=== PATIENT | male | born 1965 | race Caucasian/White ===

== ENCOUNTER 2020-07-10 17:19 | Emergency (ER) | payer OTHER, SELFPAY ==
[2020-07-10] VITALS (20 sets, daily range): BP systolic 127–155; BP diastolic 67–112; PULSE 59–73; RESP 14–22; TEMP 36; O2SAT 98–100
--- NOTE | ~2020-07-10 | XR_ITS ---
EXAMINATION: XR chest 1V portable INDICATION: Cough and shortness of breath TECHNIQUE: Portable AP chest at 07/10/2020 COMPARISON: 08/26/2016 FINDINGS: Patchy opacities are present in the left midlung zone. No pleural effusion or pneumothorax is identified. The cardiomediastinal silhouette is stable. IMPRESSION: 1. Patchy opacities of the left midlung zone, likely pneumonia. Reviewed, dictated and finalized at location A. [employer]
--- NOTE | 2020-07-10 17:40 | ECG_ITS ---
Measurements Intervals [place] Rate: 67 P: 48 OR: 185 QRS: -4 QRSD: 106 T: 1 QT: 351 QTc: 372 Interpretive Statements SINUS RHYTHM VOLTAGE CRITERIA FOR LVH MINIMAL Q WAVES- HIGH LATERAL LEADS BORDERLINE T WAVE ABNORMALITY- ANT/INF LEADS BASELINE WANDER- V1 BORDERLINE ECG Electronically Signed On 07-10-2020 19:35:39 ASSISTANT FRONT OFFICE MANAGER by Isidoro Crump D.O.
[2020-07-10 17:59] LABS: Basophils Percent Auto 0.5 % (0.2-1.2); Eosinophils Absolute Auto 0.2 K/mm3 (0-0.3); Eosinophils Percent Auto 1.9 % (0-4.4); Hematocrit 44.2 % (42.0-52.0); Hemoglobin 14.4 g/dL (14.0-18.0); Immature Granulocyte Absolute 0.04 K/mm3 (0.00-0.031); Immature Granulocyte Percent A 0.5 % (0-0.5); Lymphocytes Absolute Auto 2.83 K/mm3 (0.9-3.2); Lymphocytes Percent Auto 34.9 % (18.3-44.2); Mean Corpuscular HGB Conc 32.6 g/dl (32-36); Mean Corpuscular Volume 82.9 fl (80-100); Mean Platelet Volume 9.6 fl (7.4-10.4); Monocytes Absolute Auto 0.5 K/mm3 (0.1-0.6); Monocytes Percent Auto 6.5 % (2.6-8.5); Neutrophils Absolute Auto 4.5 K/mm3 (1.3-6.7); Neutrophils Percent Auto 55.7 % (45.5-73.1); Platelet Count Result 228 k/mm3 (150-375); Red Blood Count 5.33 M/mm3 (4.6-6.20); White Blood Count 8.1 K/mm3 (4.5-10.0)
[2020-07-10 18:10] LABS: Anion Gap 8 mmol/L (8-16); Blood Urea Nitrogen 18 mg/dL (9-20); Calcium 9.3 mg/dL (8.4-10.2); Carbon Dioxide 30 mmol/L (22-30); Chloride 101 mmol/L (98-107); Estimated CRCL calculation 106 ml/min; Estimated Glomerular Filt Rate > 60; Glucose 105 mg/dL (75-110); Potassium 4.4 mmol/L (3.4-5.0); Sodium 139 mmol/L (137-145)
[2020-07-10] MEDS: ASPIRIN 81 MG CHEWABLE TABLET 324 MG PO (18:12)
[2020-07-10 18:16] LABS: INR 0.9; Prothrombin Time 12.8 Seconds (11.1-14.7)
[2020-07-10 18:17] LABS: Partial Thromboplastin Time 27.4 SECONDS (22.3-36.8)
[2020-07-10 18:22] LABS: Troponin I < 0.012 ng/mL (0.000-0.034)
[2020-07-10 18:30] LABS: D Dimer 0.27 ug/mL (<0.48)
--- NOTE | 2020-07-10 18:36 | ED.GENADULT ---
HPI - General Adult General Chief complaint: Upper Respiratory Infection Stated complaint: SOB, CHEST TIGHTNESS, COVID NEGATIVE Time Seen by Provider: 07/10/20 17:56 Related Data Allergies Allergy/AdvReac Type Severity Reaction Status Date / Time No Known Allergies Allergy Unverified 07/27/19 11:06 [facility] Past Medical History Medical History (Updated 07/10/20 @ 20:44 by Pawan Aleman, DO) Type 2 diabetes mellitus with hyperglycemia Family History Family History (Updated 08/05/18 @ 11:24 by DOCTOR UNKNOWN) Mother Family history of diabetes mellitus in first degree relative Family history of coronary artery disease Family history of pancreatic cancer Father Family history of lung cancer Other Family history of malignant neoplasm Social History Social History Smoking status: Never smoker Second hand tobacco smoke exposure: No Alcohol intake: current Drinks per week: 1 Substance use: never Substance use type: does not use Gender identity (if verbalized by the patient): Male Course Course Emergency Course: Patient has been asymptomatic throughout stay in ED Discussed with Dr. Coburn presentation work-up. With malignancy on chest x-ray will start on azithromycin will obtain Covid swab in ED with discharge and follow-up as an outpatient Discussed with patient results of workup and diagnosis. Discussed need for follow-up with primary care, proper use of medication, and reasons to return to the emergency department. Patient understands and agrees to current treatment plan patient states that albuterol inhaler was called in for him today Vital Signs Vital signs: Vital Signs Temperature 96.8 F L 07/10/20 17:33 Pulse Rate 65 07/10/20 17:33 Respiratory Rate 18 07/10/20 17:33 Blood Pressure 150/79 H 07/10/20 17:33 Pulse Oximetry 99 07/10/20 17:33 Temperature 96.8 F L 07/10/20 17:33 Pulse Rate 62 07/10/20 19:26 Respiratory Rate 21 H 07/10/20 19:26 Blood Pressure 140/76 07/10/20 19:26 Pulse Oximetry 100 07/10/20 19:26 Medical Decision Making Differential Diagnosis Differential Diagnosis: Patient's EKGs and labs are without significant high risk changes. Cardiac risk factors reviewed. Patient is felt likely low risk for ACS and reasonable for further risk stratification testing as an outpatient. Pain was not sudden or maximal in onset without tearing or ripping quality. No other signs of symptoms suggest aortic dissection. A low-risk Wells criteria is noted, PE is felt to be unlikely. No pneumonia seen on evaluation today. Patient is felt to be a reasonable candidate for continued evaluation as an outpatient. At this time with pneumonia seen on chest x-ray will obtain Covid swab as currently and Covid pandemic with high rate of local transmission Vital Signs Vital Signs: Vital Signs Temperature 96.8 F L 07/10/20 17:33 Pulse Rate 65 07/10/20 17:33 Respiratory Rate 18 07/10/20 17:33 Blood Pressure 150/79 H 07/10/20 17:33 Pulse Oximetry 99 07/10/20 17:33 Temperature 96.8 F L 07/10/20 17:33 Pulse Rate 62 07/10/20 19:26 Respiratory Rate 21 H 07/10/20 19:26 Blood Pressure 140/76 07/10/20 19:26 Pulse Oximetry 100 07/10/20 19:26 Lab Data Result diagrams: 07/10/20 17:46 07/10/20 17:46 Labs: Lab Results 07/10/20 07/10/20 07/10/20 Range/Units 17:46 17:46 17:46 WBC 8.1 (4.5-10.0) K/mm3 RBC 5.33 (4.6-6.20) M/mm3 Hgb 14.4 (14.0-18.0) g/dL Hct 44.2 (42.0-52.0) % MCV 82.9 (80-100) fl MCH 27.0 (26-34) pg MCHC 32.6 (32-36) g/dl RDW 13.0 (11.5-14.5) % Plt Count 228 (150-375) k/mm3 MPV 9.6 (7.4-10.4) fl Immature Gran % (Auto) 0.5 (0-0.5) % Neut % (Auto) 55.7 (45.5-73.1) % Lymph % (Auto) 34.9 (18.3-44.2) % Garfield % (Auto) 6.5 (2.6-8.5) % Eos % (Auto) 1.9 (0-4.4) % Baso % (Auto)
--- NOTE | 2020-07-10 19:08 | PC.NURSE ---
report to WYATT Matta, to continue care.
--- NOTE | 2020-07-10 19:11 | PC.NURSE ---
Assumed care of pt. report from WYATT Miller
[2020-07-10] MEDS: AZITHROMYCIN 250 MG TABLET 500 MG PO (21:00)
[2020-07-10 21:35] LABS: Troponin I < 0.012 ng/mL (0.000-0.034)
[2020-07-11 18:52] LABS: SARS-CoV-2 RNA PCR Negative
== END 2020-07-10 21:57 | disposition home or self-care (01) ==
PROVIDERS: Emergency Medicine; Emergency Provider Emergency Medicine; PCP Family Medicine
DX: J18.9 Pneumonia, unspecified organism (principal); Z20.828 Contact with and (suspected) exposure to other viral communicable diseases; E11.9 Type 2 diabetes mellitus without complications
CPT/HCPCS: 36415; 71045; 80048; 84484; 85025; 85380; 85610; 85730; 87635; 93005; 99284; A9270; C9803; U0003

== ENCOUNTER 2021-05-25 00:55 | Day surgery (SDC) | payer OTHER, SELFPAY ==
[2021-05-10 10:54] VITALS: BMI 43.9
--- NOTE | 2021-05-24 13:41 | PM.HPGS ---
History of Present Illness History of Present Illness Consent: Risks, benefits, and alternatives have been discussed and questions answered. Patient agrees to proceed with procedure. Chief complaint: hx of colon polyps, neoplasm screening Narrative: Pawan Barrow is a 55 year old male referred for colon cancer screening. He had polyps removed about 4 years ago Review of Systems Review of Systems: All systems reviewed & are unremarkable except as noted in HPI and below PMFSH Past Medical History Medical History Type 2 diabetes mellitus with hyperglycemia Family History Family History Mother Family history of diabetes mellitus in first degree relative Family history of coronary artery disease Family history of pancreatic cancer Father Family history of lung cancer Other Family history of malignant neoplasm Social History Social History Smoking status: Never smoker Second hand tobacco smoke exposure: No Alcohol intake: current Drinks per week: 1 Substance use: never Substance use type: does not use Living arrangements: with family Gender identity (if verbalized by the patient): Male Spiritual care concerns: No Meds Home Medications and Allergies Home Medications Medication Instructions Recorded Confirmed Type rosuvastatin 5 mg tablet 5 mg PO QPM #30 tablet 12/21/20 05/25/21 Rx empagliflozin 10 mg tablet 10 mg PO QAM #90 tablet 02/08/21 05/25/21 Rx levothyroxine 175 mcg tablet 175 mcg PO DAILY #90 tablet 04/25/21 05/25/21 Rx metformin 500 mg tablet,extended 2,000 mg PO DAILY #360 tablet 04/25/21 05/25/21 Rx release 24 hr Allergies Allergy/AdvReac Type Severity Reaction Status Date / Time No Known Allergies Allergy Verified 05/25/21 08:12 Exam Resp: Auscultation: clear to auscultation bilaterally Cardio: Rate: regular rate Rhythm: regular rhythm GI: GI Palp: Yes Soft to palpation and No Tenderness to palpation present (GI) Assessment and Plan Assessment and plan (1) Colon cancer screening: Code(s): Z12.11 - Encounter for screening for malignant neoplasm of colon Status: Acute Assessment and Plan: Colonoscopy with possible biopsy or polypectomy or cautery or injection of substances.
[2021-05-25 08:13] VITALS: BP 139/72; PULSE 68; RESP 20; TEMP 36.6; O2SAT 98; BMI 44.9
[2021-05-25] MEDS: LACTATED RINGERS 1,000 ML 150 ML IV CONT (08:16)
[2021-05-25 08:20] LABS: Glucose Point of Care 112 mg/dl (65-105)
--- NOTE | 2021-05-25 08:49 | P.PNAN_ITS ---
Anes - Initial Pre Proc Eval Procedure: Operation Date: 05/25/21 09:00 Proposed Procedures p Screening Colonoscopy - Modesto Santiago MD Date/Time: 05/25/21 08:49 Surgeon: Modesto Santiago MD Pre Op Diagnosis: hx of colon polyps, neoplasm screening Patient Data Age: 55 Gender: M Height: 1.7 m Weight: 130 kg Last Vital Signs Temp 98 F 05/25/21 08:13 Pulse 68 05/25/21 08:13 Resp 20 05/25/21 08:13 BP 139/72 05/25/21 08:13 Pulse Ox 98 05/25/21 08:13 Allergies Allergy/AdvReac Type Severity Reaction Status Date / Time No Known Allergies Allergy Verified 05/25/21 08:12 Home Medications Medication Instructions Recorded Confirmed Type rosuvastatin 5 mg tablet 5 mg PO QPM #30 tablet 12/21/20 05/25/21 Rx empagliflozin 10 mg tablet 10 mg PO QAM #90 tablet 02/08/21 05/25/21 Rx levothyroxine 175 mcg tablet 175 mcg PO DAILY #90 tablet 04/25/21 05/25/21 Rx metformin 500 mg tablet,extended 2,000 mg PO DAILY #360 tablet 04/25/21 05/25/21 Rx release 24 hr Laboratory Tests 05/25/21 08:17 POC Capillary Glucose 112 mg/dl H mg/dl (65-105) Patient hx anesthesia problems: none Family hx anesthesia problems: none Results Review: All pre-operative results and documents have been reviewed as part of the pre-operative evaluation. [facility] Past Medical History Medical History (Updated 05/25/21 @ 08:49 by Dimitrios Porras MD) Hypothyroidism, unspecified CUATE (obstructive sleep apnea) Type 2 diabetes mellitus with hyperglycemia Family History Family History Mother Family history of diabetes mellitus in first degree relative Family history of coronary artery disease Family history of pancreatic cancer Father Family history of lung cancer Other Family history of malignant neoplasm Social History Social History Smoking status: Never smoker Second hand tobacco smoke exposure: No Alcohol intake: current Drinks per week: 1 Substance use: never Substance use type: does not use Living arrangements: with family Gender identity (if verbalized by the patient): Male Spiritual care concerns: No Anes - Eval Final PreProcedure Day of Procedure 05/25/21 08:49 Patient weight: morbidly obese Heart: regular rate and rhythm Lungs: clear to auscultation Airway: Mallampati scale class III Neurological: alert and oriented Last oral intake: >/= 8 hours ASA classification: III Emergent: no Anesthetic plan: proceed Anesthesia type and monitoring: general GIVS and standard monitoring Results Review: All pre-operative results and documents have been reviewed as part of the pre-operative evaluation. Informed Consent: The patient's anesthetic plan and its attendant risks and benefits were discussed with the patient/family/POA. Questions were solicited and answers provided to the satisfaction of the patient/family/POA.
[2021-05-25 09:18] VITALS: BP 107/64; PULSE 66; RESP 24; O2SAT 97
[2021-05-25 09:28] VITALS: BP 108/61; PULSE 70; RESP 25; O2SAT 96
[2021-05-25 09:38] VITALS: BP 114/69; PULSE 62; RESP 26; O2SAT 99
== END 2021-05-25 09:45 | disposition home or self-care (01) ==
PROVIDERS: PCP Family Medicine; Visit Provider Internal Medicine Gastroenterology
PROC: 0DJD8ZZ Inspection of Lower Intestinal Tract, Via Natural or Artificial Opening Endoscopic (ICD-10-PCS; CPT 45378; principal; 2021-05-25 09:00)
DX: Z12.11 Encounter for screening for malignant neoplasm of colon (principal); D12.5 Benign neoplasm of sigmoid colon; E11.9 Type 2 diabetes mellitus without complications; E03.9 Hypothyroidism, unspecified; G47.33 Obstructive sleep apnea (adult) (pediatric); Z79.84 Long term (current) use of oral hypoglycemic drugs; E66.01 Morbid (severe) obesity due to excess calories; Z68.41 Body mass index [BMI] 40.0-44.9, adult
CPT/HCPCS: 45385; 82948; 88305; J2704; J7120

== ENCOUNTER 2021-10-29 10:57 | Emergency (ER) | payer OTHER, SELFPAY ==
[2021-10-29 11:55] VITALS: BP 143/84; PULSE 82; RESP 18; TEMP 36.6; O2SAT 97
--- NOTE | 2021-10-29 12:00 | ECG_ITS ---
Measurements Intervals [place] Rate: 76 P: 44 MA: 178 QRS: -6 QRSD: 96 T: 0 QT: 356 QTc: 403 Interpretive Statements SINUS RHYTHM MODERATE VOLTAGE CRITERIA FOR LVH, CONSIDER NORMAL VARIANT [MEETS CRITERIA IN ONE OF: R(aVL), S(V1), R(V5), R(V5/V6)+S(V1)] NONSPECIFIC T-WAVE ABNORMALITY BORDERLINE ECG COMPARED TO ECG 07/10/2020 17:50:46 NO SIGNIFICANT CHANGE Electronically Signed On 10-29-2021 12:33:14 CDT by Yovany Kidd M.D.
--- NOTE | 2021-10-29 12:07 | ED.CHESTPAIN ---
HPI - Chest Pain General Chief Complaint: Chest Pain Stated Complaint: sob,chest tightness Time Seen by Provider: 10/29/21 12:00 Source: patient, family and RN notes reviewed History of Present Illness HPI narrative: 56 year old male presents to express care with complaints of sharp mid sternal pain radiating down his left arm to his elbow which started around 0800 this morning. Patient states that he feels some dyspnea at rest but even more noted with exertion. 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 Patient denies any nausea or vomiting, no sweating or any feelings of dizziness. Patient denies any previous episodes of chest pain similar to presenting complaint. He also states some tenderness to left calf with no acute redness or swelling. Patient is morbidly obese and is diabetic has CUATE, hyperlipidemia. Patient denies any previous cardiac history. MD complaint: chest pain (radiation down left arm) and other (shortness of breath) Onset (ago): hour(s) Related Data Home Medications Medication Instructions Recorded Confirmed Jardiance 10 mg PO DAILY 10/29/21 10/29/21 Allergies Allergy/AdvReac Type Severity Reaction Status Date / Time No Known Allergies Allergy Verified 10/29/21 12:05 Review of Systems Review of Systems: CONSTITUTIONAL: Denies fever, chills, or sweats. EYES: Denies visual changes, redness, or discharge. ENT: Denies rhinorrhea, congestion, sore throat, or otalgia. CARDIOVASCULAR:Positive for midsternal chest pain,no palpitations, or edema. RESPIRATORY: Denies cough positive for dyspnea which increases with activity GASTROINTESTINAL: Denies abdominal pain, nausea, vomiting, or diarrhea. GENITOURINARY: Denies dysuria or hematuria. SKIN: Denies rash or itching. MUSCULOSKELETAL: Denies back pain, joint pain, reports some left calf pain NEUROLOGIC: Denies headache, numbness, or weakness. PSYCHIATRIC: Denies anxiety or depression. All systems reviewed & are unremarkable except as noted in HPI and below PMFSH Past Medical History Medical History Chronic anemia Hypothyroidism Mixed hyperlipidemia Obstructive sleep apnea on CPAP Type 2 diabetes mellitus Surgical History Surgical History History of bilateral cataract extraction History of colonoscopy with polypectomy History of hemorrhoidectomy History of lumbar fusion (2010) L3-L4. History of tonsillectomy Family History Family History Mother Family history of diabetes mellitus in first degree relative Family history of coronary artery disease Family history of pancreatic cancer Father Family history of lung cancer Other Family history of malignant neoplasm Social History Social History (Updated 10/29/21 @ 21:02 by Evelyne Schwab PA-C) Social History: Surrogate decision-maker: Anamika Barrow, . CODE STATUS: Full code. Smoking status: Never smoker Second hand tobacco smoke exposure: No Alcohol intake: current Drinks per week: 2 Substance use: former Substance use type: does not use Additional living arrangements comments: The patient lives with his in [place]. Additional occupation/education comments: [employer]. Spiritual care concerns: No Comments At time of signature, agree with nursing past medical, surgical, social and family history. There is no relevant family history pertinent to the presenting complaint Exam Narrative: GENERAL: Well-appearing, well-nourished, morbidly obese and in no mild distress. HEAD: Normocephalic, atraumatic. EYES: PERRLA and EOMI. ENT: Nares clear, no rhinorrhea or epistaxis. Mucous membranes moist.TM's normal with good light reflex, throat pink with no lesions or exudates, no tonsils present. NECK: Supple.No lymphadenopathy C
--- NOTE | 2021-10-29 12:26 | PC.NURSE ---
1204 - (4) Aspirin 81 mg given PO to patient. Verified by Nupur Bloom (RAMIREZ) and patient prior to administration.
== END 2021-10-29 12:15 | disposition short-term general hospital (02) ==
PROVIDERS: Emergency Provider Registered Nurse; PCP Family Medicine
DX: R07.9 Chest pain, unspecified (principal); E03.9 Hypothyroidism, unspecified; E78.2 Mixed hyperlipidemia; G47.33 Obstructive sleep apnea (adult) (pediatric); E11.9 Type 2 diabetes mellitus without complications
CPT/HCPCS: 93005; 99213; A9270; G0463

== ENCOUNTER 2021-10-29 12:30 | Observation (INO) | payer OTHER, SELFPAY ==
[2021-10-29] VITALS (33 sets, daily range): BP systolic 114–186; BP diastolic 60–98; PULSE 62–79; RESP 14–28; TEMP 36.3–36.6; O2SAT 96–100; BMI 44.1
--- NOTE | ~2021-10-29 | XR_ITS ---
EXAMINATION: XR chest 2V DATE: 10/29/2021 13:09 INDICATION: Chest pain. Shortness of breath. TECHNIQUE: Frontal and lateral views of the chest were obtained. COMPARISON: Chest single view 07/10/2020 FINDINGS: The chest demonstrates clear lungs without pneumonia, pleural effusion, or pneumothorax. Th e heart size is normal. IMPRESSION: 1. No acute cardiopulmonary disease. Reviewed, dictated and finalized at location A.
--- NOTE | ~2021-10-29 | NM_ITS ---
EXAMINATION: NM raul stress w perfusion DATE: 10/30/2021 13:15 INDICATION: Chest pain TECHNIQUE: Rest images were obtained following intravenous administration of 10.8 mCi Tc99m tetrofosm in (Myoview). The patient was infused intravenously with Lexiscan (Regadenoson). Then, 34.5 mCi Tc99m tetrofosmin (Myoview) was administered intravenously, and stress images were obtained. Data was willie nstructed into short axis and horizontal and vertical long axis SPECT images. Gated SPECT images were also obtained. COMPARISON: None. FINDINGS: There is no definite reversible or fixed perfusion abnormality to suggest ischemia or infar ction. There is normal left ventricular chamber size, wall motion and ejection fraction. Left ventr icular ejection fraction measures 67%. IMPRESSION: 1. Normal myocardial perfusion at rest and during stress. 2. Left ventricular ejection fraction measuring 67%. Reviewed, dictated and finalized at location A.
--- NOTE | 2021-10-29 12:30 | ECG_ITS ---
Measurements Intervals [place] Rate: 72 P: 49 ME: 147 QRS: 1 QRSD: 98 T: -10 QT: 384 QTc: 422 Interpretive Statements SINUS RHYTHM POSSIBLE LEFT VENTRICULAR HYPERTROPHY [VOLTAGE CRITERIA PLUS LAE OR QRS WIDENING] NONSPECIFIC ST & T-WAVE ABNORMALITY Borderline ECG COMPARED TO ECG 10/29/2021 12:01:03 NO SIGNIFICANT CHANGES Electronically Signed On 10-29-2021 13:20:28 CDT by Yovany Kidd M.D.
[2021-10-29 13:01] LABS: Basophils Absolute Auto 0.1 K/mm3 (0.0-0.1); Basophils Percent Auto 0.6 % (0.2-1.2); Eosinophils Absolute Auto 0.2 K/mm3 (0-0.3); Eosinophils Percent Auto 1.8 % (0-4.4); Hematocrit 46.2 % (42.0-52.0); Hemoglobin 14.6 g/dL (14.0-18.0); Immature Granulocyte Absolute 0.06 K/mm3 (0.00-0.031); Immature Granulocyte Percent A 0.7 % (0-0.5); Lymphocytes Absolute Auto 1.97 K/mm3 (0.9-3.2); Lymphocytes Percent Auto 22.4 % (18.3-44.2); Mean Corpuscular HGB Conc 31.6 g/dl (32-36); Mean Corpuscular Hemoglobin 26.7 pg (26-34); Mean Corpuscular Volume 84.6 fl (80-100); Mean Platelet Volume 9.6 fl (7.4-10.4); Monocytes Absolute Auto 0.4 K/mm3 (0.1-0.6); Monocytes Percent Auto 4.9 % (2.6-8.5); Neutrophils Absolute Auto 6.1 K/mm3 (1.3-6.7); Neutrophils Percent Auto 69.6 % (45.5-73.1); Platelet Count Result 201 k/mm3 (150-375); Red Blood Count 5.46 M/mm3 (4.6-6.20); Red Cell Distribution Width 13.2 % (11.5-14.5); White Blood Count 8.8 K/mm3 (4.5-10.0)
--- NOTE | 2021-10-29 13:06 | ED.CHESTPAIN ---
HPI - Chest Pain General Chief Complaint: Chest Pain <BIJU Flores Last Filed: 10/29/21 20:24> Stated Complaint: Chest pain <BIJU Flores Last Filed: 10/29/21 20:24> Time Seen by Provider: 10/29/21 12:40 <BIJU Flores Last Filed: 10/29/21 20:24> Source: patient <BIJU Flores Last Filed: 10/29/21 20:24> Mode of arrival: ambulatory <BIJU Flores Last Filed: 10/29/21 20:24> Limitations: no limitations <BIJU Flores Last Filed: 10/29/21 20:24> History of Present Illness HPI narrative: Patient is a 56-year-old male, with a PMHx of DM, HLD, obesity, sleep apnea, and hypothyroidism, who presents the ED with report of shortness breath and chest pain. Patient reports he was at work this morning when he became short of breath with minimal exertion. 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 It took him several hours of rest to feel relief and improved breathing. He also reports having a dull ache in his left-sided chest, radiating down his left arm to his left elbow. He states this pain has remained constant since it began around 8:30 AM. He rates his pain a 3 out of 10 on the pain scale. He has not taken anything for the pain. He denies any fever, chills, back pain, nausea, vomiting, abdominal pain, cough, BLE pain or edema. Patient had a stress test several years ago which was normal at that time. He does not follow with manager loan. <BIJU Flores Last Filed: 10/29/21 20:24> Related Data Home Medications: Home Medications Medication Instructions Recorded Confirmed Jardiance 10 mg PO DAILY 10/29/21 10/29/21 <BIJU Flores Last Filed: 10/29/21 20:24> Allergies/Adverse Reactions: Allergies Allergy/AdvReac Type Severity Reaction Status Date / Time No Known Allergies Allergy Verified 10/29/21 12:05 <Libia Mistry PA-C - Last Filed: 10/29/21 20:24> Review of Systems Review of Systems: CONSTITUTIONAL: Denies fever, chills, or sweats. CARDIOVASCULAR: Reports left-sided chest pain. Denies palpitations, or edema. RESPIRATORY: Reports DIEGO. Denies cough. GASTROINTESTINAL: Denies abdominal pain, nausea, vomiting, or diarrhea. MUSCULOSKELETAL: Denies back pain. NEUROLOGIC: Denies headache, numbness, or weakness. <Libia Mistry PA-C - Last Filed: 10/29/21 20:24> All systems reviewed & are unremarkable except as noted in HPI and below <Libia Mistry PA-C - Last Filed: 10/29/21 20:24> [facility] Past Medical History Medical History: Medical History Chronic anemia Hypothyroidism Mixed hyperlipidemia Obstructive sleep apnea on CPAP Type 2 diabetes mellitus <Libia Mistry PA-C - Last Filed: 10/29/21 20:24> Surgical History Surgical History: Surgical History History of bilateral cataract extraction History of colonoscopy with polypectomy History of hemorrhoidectomy History of lumbar fusion (2009) L3-L4. History of tonsillectomy <Libia Mistry PA-C - Last Filed: 10/29/21 20:24> Family History Family History: Family History Mother Family history of diabetes mellitus in first degree relative Family history of coronary artery disease Family history of pancreatic cancer Father Family history of lung cancer Other Family history of malignant neoplasm <Libia Mistry PA-C - Last Filed: 10/29/21 20:24> Social History Social History: Social History (Updated 10/29/21 @ 21:02 by Evelyne Schwab PA-C) Social History: Surrogate decision-maker: Anamika Barrow, . CODE STATUS: Full code. Smoking status: Never smoker Second hand tobacco smoke exposure: No Alcohol intake: current Drinks per week: 2 Substance use: former Substa
[2021-10-29 13:12] LABS: Alanine Aminotransferase 52 U/L (4-50); Albumin Level 4.7 g/dL (3.5-5.1); Alkaline Phosphatase 78 U/L (38-126); Anion Gap 12 mmol/L (8-16); Aspartate Amino Transferase 62 U/L (17-59); Bilirubin,Total 0.6 mg/dL (0.2-1.3); Blood Urea Nitrogen 15 mg/dL (9-20); Calcium 9.3 mg/dL (8.4-10.2); Carbon Dioxide 24 mmol/L (22-30); Chloride 101 mmol/L (98-107); Estimated Glomerular Filt Rate > 60; Glucose 191 mg/dL (65-110); Lipase 140 U/L (23-300); Potassium 4.4 mmol/L (3.4-5.0); Sodium 137 mmol/L (137-145)
[2021-10-29 13:14] LABS: INR 1.1; Prothrombin Time 13.3 Seconds (11.1-14.7)
[2021-10-29 13:15] LABS: Partial Thromboplastin Time 28.4 SECONDS (22.3-36.8)
[2021-10-29 13:23] LABS: Troponin I < 0.012 ng/mL (0.000-0.034)
[2021-10-29 13:32] LABS: D Dimer < 0.27 ug/mL (<0.48)
--- NOTE | 2021-10-29 15:30 | PM.IMHP ---
H&P: HPI History of Present Illness Date/Time: 10/29/21 15:30 Chief Complaint: Chest pain. Narrative: This is a pleasant 56-year-old male with type 2 diabetes mellitus, hyperlipidemia, obstructive sleep apnea, and hypothyroidism who presented to the emergency department for evaluation of chest pain. 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 He also noticed a dull pain just left of the midsternal region, radiating into the left shoulder and down to the elbow. 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 He has no personal or family history of coronary artery disease and reports having a negative exercise stress test several years ago. His symptoms were concerning enough for him to come to the ER for evaluation and on arrival his EKG showed nonspecific ST T-wave abnormalities with an initial troponin level of less than 0.012. At the time my evaluation he has minimal discomfort and is not requiring any analgesics, rating his chest pain 2-3/10. Review of Systems Review of Systems: Twelve systems were reviewed. No recent cold or flu symptoms. No sick contacts. No syncope or near syncope. He states compliance with his CPAP at nighttime. Most recent hemoglobin A1c was less than 7% per patient report. Except as documented, all other systems were reviewed and are negative. [facility] Past Medical History Medical History Chronic anemia Hypothyroidism Mixed hyperlipidemia Obstructive sleep apnea on CPAP Type 2 diabetes mellitus Surgical History Surgical History History of bilateral cataract extraction History of colonoscopy with polypectomy History of hemorrhoidectomy History of lumbar fusion (2009) L3-L4. History of tonsillectomy Family History Family History Mother Family history of diabetes mellitus in first degree relative Family history of coronary artery disease Family history of pancreatic cancer Father Family history of lung cancer Other Family history of malignant neoplasm Social History Social History (Updated 10/29/21 @ 21:02 by Evelyne Schwab PA-C) Social History: Surrogate decision-maker: Anamika Barrow, . CODE STATUS: Full code. Smoking status: Never smoker Second hand tobacco smoke exposure: No Alcohol intake: current Drinks per week: 2 Substance use: former Substance use type: does not use Additional living arrangements comments: The patient lives with his in [place]. Additional occupation/education comments: [place] [email or web address]. Spiritual care concerns: No Meds Home Medications and Allergies Home Medications Medication Instructions Recorded Confirmed Type levothyroxine 175 mcg tablet 175 mcg PO DAILY #90 tablet 04/25/21 10/29/21 Rx metformin 500 mg tablet,extended 2,000 mg PO DAILY #360 tablet 04/25/21 10/29/21 Rx release 24 hr rosuvastatin 5 mg tablet 5 mg PO QPM #90 tablet 08/23/21 10/29/21 Rx Jardiance 10 mg PO DAILY 10/29/21 10/29/21 History Allergies Allergy/AdvReac Type Severity Reaction Status Date / Time No Known Allergies Allergy Verified 10/29/21 12:05 Vital Signs Vital Signs - 24 hr 10/29/21 12:40 10/29/21 12:41 10/29/21 12:45 Pulse Rate 78 76 73 Respiratory Rate 17 14 18 Blood Pressure 186/86 H Pulse Oximetry 99 100 10/29/21 12:47 10/29/21 13:07 10/29/21 13:09 Pulse Rate 73 75 69 Respiratory Rate 20 28 H 20 Blood Pressure 163/81 H 159/80 H Pulse Oximetry 99 98 98 10/29/21 13:15 10/29/21 13:17 10/29/21 13:30 Pulse Rate 76 74 73 Respiratory Rate 14 24 H 14 Blood Pressure 158/98 H Pulse Oximetry 100 100 98 10/29/21 13:32 10/29/21 13:33 10/29/21 13:45 Pulse Rate
[2021-10-29 16:17] LABS: Troponin I < 0.012 ng/mL (0.000-0.034)
--- NOTE | 2021-10-29 16:50 | ADMGEN ---
This patient, Pawan Barrow, was admitted to IMU Room 210-01. Patient/family oriented to hospital policies and general routines including ID bracelet, bed and alarms, visiting hours, pain management, procedures, bathroom and other care routines, personal items, smoking policy, room service/diet, and visiting hours. Information on how to activate the Rapid Response Team has been discussed. Patient/Family are encouraged to report perceived risks to care and to ask questions if they do not understand what they are told or what they should do.
[2021-10-29 19:13] LABS: Troponin I < 0.012 ng/mL (0.000-0.034)
[2021-10-29] MEDS: ROSUVASTATIN 5 MG TABLET PO (22:34)
[2021-10-29] MEDS: METOPROLOL TARTRATE 12.5 MG TABLET PO (22:34)
[2021-10-30] VITALS (10 sets, daily range): BP systolic 109–131; BP diastolic 56–75; PULSE 60–81; RESP 18–21; TEMP 35.7–36.6; O2SAT 96–99
[2021-10-30 05:18] LABS: Hematocrit 44.6 % (42.0-52.0); Hemoglobin 14.1 g/dL (14.0-18.0); Mean Corpuscular HGB Conc 31.6 g/dl (32-36); Mean Corpuscular Hemoglobin 27.1 pg (26-34); Mean Corpuscular Volume 85.6 fl (80-100); Mean Platelet Volume 9.7 fl (7.4-10.4); Platelet Count Result 217 k/mm3 (150-375); Red Blood Count 5.21 M/mm3 (4.6-6.20); Red Cell Distribution Width 13.2 % (11.5-14.5); White Blood Count 7.5 K/mm3 (4.5-10.0)
[2021-10-30 05:28] LABS: Alanine Aminotransferase 51 U/L (4-50); Albumin Level 4.6 g/dL (3.5-5.1); Alkaline Phosphatase 70 U/L (38-126); Anion Gap 10 mmol/L (8-16); Aspartate Amino Transferase 57 U/L (17-59); Bilirubin,Total 0.6 mg/dL (0.2-1.3); Blood Urea Nitrogen 15 mg/dL (9-20); Calcium 8.8 mg/dL (8.4-10.2); Carbon Dioxide 27 mmol/L (22-30); Chloride 100 mmol/L (98-107); Cholesterol 166 mg/dL (0-200); Estimated CRCL calculation 117 ml/min; Estimated Glomerular Filt Rate > 60; Glucose 158 mg/dL (65-110); HDL Direct 37 mg/dL; Magnesium 2.1 mg/dL (1.6-2.3); Potassium 3.8 mmol/L (3.4-5.0); Sodium 137 mmol/L (137-145); Triglycerides 350 mg/dL (<150)
[2021-10-30 05:39] LABS: LDL Cholesterol Direct 77 mg/dL
[2021-10-30] MEDS: LEVOTHYROXINE SODIUM 25 MCG TABLET PO (05:58)
[2021-10-30] MEDS: LEVOTHYROXINE SODIUM 150 MCG TABLET PO (05:58)
[2021-10-30 07:46] LABS: Hemoglobin A1C 6.9 % (<5.7)
[2021-10-30] MEDS: ASPIRIN 81 MG ENTERIC TABLET PO (08:40)
[2021-10-30] MEDS: ENOXAPARIN 40 MG/0.4 ML SYRINGE SUB-Q (08:41)
[2021-10-30 08:58] LABS: Glucose Point of Care 143 mg/dl (65-105)
--- NOTE | 2021-10-30 10:07 | EST_ITS ---
Patient Info Name: Pawan Barrow Age: 56 years : 1965 Gender: Male Ht: 67 in Wt: 281 lbs BSA: 2.52 m2 HR: 65 bpm BP: 118 / 70 mmHg Heart Rhythm: Sinus Rhythm Exam Date: 10/30/2021 11:58 AM Exam Location: [facility] Stress Patient Status: Outpatient Admit Date: 10/29/2021 Staff Ordering Physician: Adrian Hess MD Attending Provider: Jovon Pastrana MD Exercise Technologist: Traci Wilson CT Exercise Physician: Isidoro Crump DO Exam Type: CA stress raul w NM Study Info Indications R07.89 - Other chest pain A regadenoson stress test was performed. Summary 1. 1. Negative lexiscan stress test for ischemic ST changes by ECG criteria. 2. 2. Stable hemodynamics throughout the test. 3. 3. Nuclear scan to follow and will be reported separately. Please correlate with it. 4. 4. Patient informed of the above results. Protocol: Lexiscan Stress ECG Details Stage: REST Duration (min): 1 min : 4 sec HR (bpm): 66 SBP (mmHg): 118 DBP (mmHg): 70 Stage: REST Duration (min): 6 min : 3 sec HR (bpm): 67 SBP (mmHg): 118 DBP (mmHg): 70 Stage: STAGE 1 Duration (min): 1 min : 0 sec HR (bpm): 78 SBP (mmHg): 125 DBP (mmHg): 78 Stage: RECOVERY Duration (min): 1 min : 0 sec HR (bpm): 81 SBP (mmHg): 125 DBP (mmHg): 78 Stage: RECOVERY Duration (min): 2 min : 0 sec HR (bpm): 79 SBP (mmHg): 125 DBP (mmHg): 78 Stage: RECOVERY Duration (min): 3 min : 0 sec HR (bpm): 74 SBP (mmHg): 117 DBP (mmHg): 64 Stage: RECOVERY Duration (min): 3 min : 5 sec HR (bpm): 74 SBP (mmHg): 117 DBP (mmHg): 64 Rest HR: 67 bpm Peak HR: 85 bpm Rest Sys BP: 118 mmHg Peak Sys BP: 125 mmHg Max Pred HR: 165 bpm % Max Pred HR: 52 % Target HR: 140 bpm Max RPP: 10,625 bpm*mmHg Termination Reason: Completed protocol Cardiac Symptoms: Shortness of breath Total Time: 1 min : 0 sec Rest Powell BP: 70 mmHg Peak Powell BP: 78 mmHg Total Dose: 0.4 mg Resting ECG Sinus rhythm, IRBBB, borderline T wave in ant/inf leads. Stress ECG No ST changes. Arrhythmias None. Report Signatures
[2021-10-30 10:36] LABS: Free T4 Free Thyroxine Reflex 1.06 ng/dL (0.78-2.19)
[2021-10-30 13:18] LABS: Glucose Point of Care 142 mg/dl (65-105)
[2021-10-30 13:45] LABS: Total Triiodothyronine (T3) 1.34 NG/ML (0.97-1.69)
--- NOTE | 2021-10-30 14:49 | PM.DS ---
DS: Admitting Diagnosis Discharge Date 10/30/21 Admitting Diagnosis Chest pain DS: Discharge Diagnosis Discharge Diagnosis (1) Chest pain: Qualifiers: Chest pain type: unspecified Qualified Code(s): R07.9 - Chest pain, unspecified Code(s): R07.9 - Chest pain, unspecified Status: Acute (2) Type 2 diabetes mellitus: Code(s): E11.9 - Type 2 diabetes mellitus without complications Status: Acute (3) Mixed hyperlipidemia: Code(s): E78.2 - Mixed hyperlipidemia Status: Chronic (4) Obstructive sleep apnea on CPAP: Code(s): G47.33 - Obstructive sleep apnea (adult) (pediatric); Z99.89 - Dependence on other enabling machines and devices Status: Acute (5) Hypothyroidism: Code(s): E03.9 - Hypothyroidism, unspecified Status: Acute DS: Summary Hospital Course Reason for hospitalization: 56yo male with DM here for chest pain. Please see H&P for details Hospital Course: Patient developed acute onset chest pain while walking. THe pain was a dull pain just left the midsternal radiating into left shoulder and down the elbow. He has diabetes and hyperlipidemia. He believes his mother had heart disease in her 50s. Nonsmoker. He went to the urgent care center where he received aspirin and was directed to the ED. EKG showed normal sinus rhythm with evidence of LVH and nonspecific T-wave changes. No significant change from an EKG from 2020. Chest x-ray was clear. CBC, PT, PTT, D-dimer and CMP were normal except for elevated glucose of 191, AST 62 and ALT of 52 (LFTs improved on repeat). A1c 6.9. Triglycerides 350, cholesterol 166, LDL 77 and HDL 37. TSH slightly elevated 6.8 but free T4 was normal. No adjustment was made to his levothyroxine. Troponin negative x3. Patient's chest pain resolved. Patient underwent nuclear medicine Lexiscan stress test. Stress test was negative for ischemic ST changes by ECG criteria. He had stable hemodynamics throughout the test. The nuclear portion showed no definitive reversible or fixed perfusion abnormalities to suggest ischemia or infarct. EF was 67%. Etiology of the chest pain is unclear but does not appear to be cardiac. Patient is comfortable with discharge. He overall did well and was able to be discharged home on 10/30/2021. Status at Discharge Cognitive/behavioral status at discharge: Stable Time Spent with Patient Time attestation: Total time spent providing and/or coordinating discharge services: 34 minutes Time spent: Greater than 30 minutes Exam Narrative: AF 97.4 120/65 65 18 97% ra Gen - NARD Chest - CTA bilaterally, nml RR CV - RRR S1/S2 Abd - Soft, NT/ND, Positive BS Ext - No pedal edema. Negative Wero's Psych - Nml mood and affect Skin - Warm and dry DS: Data Data Completed and Pending Labs on day of discharge: Labs from last 24 hours 10/30/21 10/30/21 10/30/21 13:13 08:50 04:43 WBC RBC Hgb Hct MCV MCH MCHC RDW Plt Count MPV Sodium Potassium Chloride Carbon Dioxide Anion Gap BUN Creatinine Estim Creat Clear Calc Estimated GFR Glucose POC Capillary Glucose 142 H 143 H Hemoglobin A1c Calcium Magnesium Total Bilirubin AST ALT Alkaline Phosphatase Troponin I Total Protein Albumin Triglycerides Cholesterol LDL Cholesterol Direct HDL Direct TSH (Reflex) Free T4 Total T3 1.34 10/30/21 10/30/21 10/30/21 04:43 04:43 04:43 WBC RBC Hgb Hct MCV MCH MCHC RDW Plt Count MPV Sodium Potassium Chloride Carbon Dioxide Anion Gap BUN Creatinine Estim Creat Clear Calc Estimated GFR Glucose POC Capillary Glucose Hemoglobin A1c 6.9 H Calcium Magnesium Total Bilirubin AST ALT Alkaline Phosphatase Troponin I Total Protein Albumin Triglycerides
== END 2021-10-30 15:31 | disposition home or self-care (01) ==
LOC: ANHED 15:22 → ANHIMU 10-30 08:17
PROVIDERS: Physician Assistant; Admitting Provider Internal Medicine; Emergency Provider Emergency Medicine; PCP Family Medicine; Visit Provider Internal Medicine
DX: R07.9 Chest pain, unspecified (principal); R06.02 Shortness of breath; D64.9 Anemia, unspecified; E03.9 Hypothyroidism, unspecified; E11.9 Type 2 diabetes mellitus without complications; E78.2 Mixed hyperlipidemia; G47.33 Obstructive sleep apnea (adult) (pediatric); Z98.41 Cataract extraction status, right eye; Z99.89 Dependence on other enabling machines and devices; Z98.42 Cataract extraction status, left eye; Z98.1 Arthrodesis status; Z79.84 Long term (current) use of oral hypoglycemic drugs; Z79.899 Other long term (current) drug therapy
CPT/HCPCS: 36415; 71046; 78452; 80053; 80061; 82948; 83036; 83690; 83735; 84439; 84443; 84480; 84484; 85025; 85027; 85380; 85610; 85730; 93005; 93017; 96372; 99285; A9270; A9502; G0378; J1650; J2785

== ENCOUNTER 2022-06-24 14:07 | Outpatient (CLI) | payer OTHER, SELFPAY ==
--- NOTE | ~2022-06-24 | US_ITS ---
EXAMINATION: US soft tissue LE RT DATE: 06/24/2022 14:38 INDICATION: Medial right calf lump with acute onset proximal 2-3 weeks prior. TECHNIQUE: Multiple grayscale and Doppler ultrasound images of the region of concern at the medial [facility] calf were obtained. COMPARISON: None FINDINGS: There is a 3.3 x 1.6 x 0.9 cm complex mixed anechoic and hypoechoic fluid collection corresponding to the palpable abnormality of concern. There is no evident internal flow on color Doppler. This appear s contiguous proximally and distally with an approximately 1 mm tubular hypoechoic structure likely r epresenting a small subcutaneous blood vessel. This along with the appearance of the fluid collection be most consistent with a hematoma. No surrounding hyperemia on color Doppler to suggest abscess. IMPRESSION: 1. 3.3 x 1.6 x 0.9 cm complex subcutaneous fluid collection at the region of concern most likely repr esenting a hematoma. Reviewed, dictated and finalized at location A. [employer] SYSTEM[employer] TECHNICIAN IMPRESSION: 1. 3.3 x 1.6 x 0.9 cm complex subcutaneous fluid collection at the region of co ncern most likely representing a hematoma.
== END 2022-06-24 14:08 | disposition home or self-care (01) ==
PROVIDERS: PCP Family Medicine; Visit Provider Physician Assistant
DX: M79.89 Other specified soft tissue disorders (principal)
CPT/HCPCS: 76882

== ENCOUNTER 2024-05-10 00:57 | Day surgery (SDC) | payer OTHER, SELFPAY ==
[2024-05-07 08:33] VITALS: BMI 43.8
--- NOTE | 2024-05-07 08:43 | PC.NURSE ---
Report to the Outpatient Waiting Room, entrance under the green pavilion located off [facility], at time _10:30am on date _05/10/24 . Planned Procedure Time: ___11:30am .? Time changes happen often and if your time is changed the preop area will call you the afternoon before. - You and your visitor will be asked to self-screen and do not enter if you have any COVID symptoms. Please call surgeon if you need to reschedule. - A mask is optional within the hospital at this time. Patients may have light breakfast and take meds as scheduled. - Take only the following medications with a SIP of water on the morning of surgery: ____All Meds ok DO NOT STOP ANY OF YOUR OTHER PRESCRIPTION MEDICATIONS PRIOR TO SURGERY EXCEPT THE FOLLOWING Medications to discontinue per physician None Date to take last dose____N/A Please no make-up, nail mohawk, hairspray, perfume, deodorant, or body powder the day of surgery.? No jewelry (including any body piercings) or valuables the day of surgery, leave them at home.? Please take a shower or bath the night before, or the morning of, surgery with an antibacterial soap.? Wear comfortable, loose fitting clothing.? Children are encouraged to wear pajamas. - Jewelry must be removed prior to entering the operating room.? Rings and piercings that are not removed may be cut off. - The hospital will not accept responsibility for valuables.? - Please leave all valuables, including medications, at home the day of surgery. Pt may drive himself home. Follow any additional instructions given to you from your surgeon. Telephone instructions given to __patient and asked if any additional questions and then verbalized understanding. Patient advised to call surgeon office or pre surgery nurse liaison [phone] if any additional questions.
[2024-05-10] VITALS (7 sets, daily range): BP systolic 125–143; BP diastolic 69–79; PULSE 60–72; RESP 16–20; TEMP 36.4; O2SAT 98–100
--- NOTE | 2024-05-10 10:16 | WPDHPUPDATE1 ---
History and Physical Update Update Date/Time: 05/10/24 10:16 History and Physical has been reviewed, including an updated exam of the patient. There are NO changes in the patient's condition. Risks, benefits, and alternatives have been discussed and questions answered. Patient agrees to proceed with procedure.
[2024-05-10] MEDS: LIDO 1%/EPINEPHRINE 1:100,000 50 ML VIAL 30 ML INFILTRATE (11:58)
[2024-05-10] MEDS: BUPivacaine HCL 0.5% 10 ML AMP 30 ML INFILTRATE (11:58)
--- NOTE | 2024-05-10 23:03 | W.PM.PROC2 ---
Procedure Note - Detailed Date of Procedure 05/10/24 Pre-op Diagnosis Right lateral chest wall sebaceous cyst . Post-op Diagnosis Same Procedure Performed Excision right lateral chest wall sebaceous cyst. Surgeon Ezequiel Gamino MD Anesthesia Local Indications Patient is a 58-year-old gentleman who presented with a several month history of an enlarging cyst on his right lateral chest wall. He presents now for excision. Findings The cyst measured 3.5x1.5x1.5cm. The incision was closed with a 5cm intermediate layered wound closure. Description of Procedure After informed consent was obtained the patient was brought to the operating room was placed in a supine position on the area the right lateral chest wall was then prepped and draped in usual sterile fashion. A time-out was then performed correctly identifying the patient as well as procedure to be performed. I then utilized 1% lidocaine mixed with 0.5% Marcaine and injected around the cyst in the right lateral chest wall area. Once adequate anesthesia had been achieved I then made a transverse elliptical incision to include the whole wall of the cyst. Dissection was carried down through the dermis of the skin initially with the scalpel and then electrocautery was used to completely excise out the ellipse of tissue containing the whole cyst wall and the overlying skin. The cyst measured 3.5x1.5x1.5cm. It was sent to pathology for examination. I then achieved hemostasis in the incision utilized electrocautery. I then irrigated the incision with sterile saline solution. An intermediate layered wound closure measuring 5cm was then performed. Interrupted 3-0 Vicryl sutures were placed in the subcutaneous tissues. Another layer of interrupted 3-0 Vicryl sutures placed in a deep dermal layer. The skin edges were then approximated utilizing a running subcuticular 4-0 Monocryl suture. The incision was then cleaned and then skin glue was applied. The patient tolerated the procedure well no complications. All sponges, needles, and instrument counts were correct at the end procedure. EBL was _5__cc. The patient was awakened and taken to recovery in stable and satisfactory condition. Implants None Estimated Blood Loss 5 Drains No Packing No Pathology Yes ( sebaceous cyst sent to pathology) Complications No immediate complications Condition Stable Disposition Same day [facility] Billing Surgery - Charge Forward: Surgery Billing
== END 2024-05-10 13:00 | disposition home or self-care (01) ==
PROVIDERS: PCP Family Medicine; Visit Provider Surgery
PROC: (CPT 11406; principal; 2024-05-10 11:30)
DX: L72.0 Epidermal cyst (principal); D64.9 Anemia, unspecified; E03.9 Hypothyroidism, unspecified; E78.2 Mixed hyperlipidemia; E11.9 Type 2 diabetes mellitus without complications; G47.33 Obstructive sleep apnea (adult) (pediatric); Z99.89 Dependence on other enabling machines and devices; Z79.84 Long term (current) use of oral hypoglycemic drugs; Z98.890 Other specified postprocedural states; Z98.1 Arthrodesis status; Z80.1 Family history of malignant neoplasm of trachea, bronchus and lung; Z80.0 Family history of malignant neoplasm of digestive organs; Z82.49 Family history of ischemic heart disease and other diseases of the circulatory system
CPT/HCPCS: 11406; 12032; 88305; A9270; J2004

== ENCOUNTER 2025-03-08 16:37 | Outpatient (CLI) | payer OTHER, SELFPAY ==
--- OUTSIDE RECORDS SUMMARY | 2025-03-08 16:42 | XMS_ITS | Clinical Summary ---
Author Organization [facility] Address 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 This disclosure is being madepursuant to the Care Everywhere program and may not contain all information available regarding this patient. Last updated 18.[facility] Allergies No known active allergies Medications * Be aware that medications may not be up to date on this document. Alwaysverify current medications with the patient. levothyroxine (SYNTHROID) 88 MCG tablet Take 88 mcg by mouth daily before breakfast Active metFORMIN (GLUCOPHAGE) 1000 MG tablet Take 1,000 mg by mouth 2 times daily with morning and evening meal Active ketorolac (TORADOL) 10 MG tablet Take 1 tablet by mouth every 6 hours as needed for Pain 12 tablet 8 Active ondansetron (ZOFRAN) 4 MG tablet Take 1 tablet by mouth every 4 hours as needed for Nausea/Vomitin g 10 tablet 8 Active HYDROcodone-crista taminophen (NORCO) 5-325 MG tablet Take 1 tablet by mouth every 4 hours as needed for Pain 15 tablet 8 Active tamsulosin (FLOMAX) 0.4 MG capsule Take 1 capsule by mouth once daily Take 30 minutes after a meal at the same time each day. 15 capsule 8 Active Social History Tobacco Use Types Packs/Day Years Used Date Smoking Tobacco: Never Smokeless Tobacco: Never Alcohol Use Standard Drinks/Week Comments No 0 (1 standard drink = 0.6 oz pur e alcohol) Sex and Gender Information Value Date Recorded Sex Assigned at Not on file Legal Sex Male 1:02 PM CDT Gender Identity Not on file Sexual Orientation Not on file Last Filed Vital Signs Vital Sign Reading Time Taken Comments Blood Pressure 132/82 12/19/2017 4:02 PM CDT Pulse 81 12/19/2017 4:02 PM CDT Temperature 36.6 C (97.9 F) 12/19/2017 1:10 PM CDT Respiratory Rate 18 12/19/2017 4:02 PM CDT Oxygen Saturation 98% 12/19/2017 4:02 PM CDT Inhaled Oxygen Concentration - - Weight 138.6 kg (305 lb 8.9 oz) 12/19/2017 1:10 PM CDT Height - - Body Mass Index - - Plan of Treatment Health Maintenance Due Date Last Done Comments COLOGUARD (AGES 45-75) - COL ON CA SCREENING 1965 COLON MONITORING 1965 COLONOSCOPY - COLON CA SCREENING 1966 CT COLONOGRAPHY - COLON CA SCREENING 1965 Colorectal Cancer Screening 1965 FIT - COLON CA SCREENING 1965 FLEX SIG - COLON CA SCREENING 1965 LIPID TESTING 1965 HIV SCREENING 1981 HEPATITIS C SCREENING 10/22/1984 DTAP/TDAP/TD VACCINES (1 - Tdap) 1985 HEPATITIS B VACCINE (1 of 3 - 19+ 3-dose series) 1985 PNEUMOCOCCAL VACCINE 50+ (1 of 1 - PCV) 2016 ZOSTER VACCINE (1 of 2) 2016 COVID-19 VACCINE ( - 2023-2 5 season) 2024 DEPRESSION SCREENING 08/04/2024 INFLUENZA VACCINE (#1) 2025 HIB VACCINE Aged Out No longer eligi ble based on patient's age to complete this topic HPV VACCINE Aged Out No longer eligi ble based on patient's age to complete this topic MENINGOCOCCAL (Group B) VACC INE SHARED DECISION-MAKING Aged Out No longer eligibl e based on patient's age to complete this topic MENINGOCOCCAL GROUPS A/C/Y/W VACCINE Aged Out No longer eligible b ased on patient's age to complete this topic [place] [address] [address] [address] 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
[2025-03-08 17:05] LABS: Add Urine Microscopic? NO; Appearance Urine Clear (Clear); Glucose Urine UA 3+ mg/dL (Negative); Leukocyte Esterase Ur Negative LEU/UL (Negative); Nitrate Urine Negative (Negative); Specific Grav Ur 1.022 (1.001-1.035)
[2025-03-08 17:15] LABS: Hematocrit 44.3 % (42.0-52.0); Hemoglobin 14.2 g/dL (14.0-18.0); Immature Granulocyte Percent A 0.4 % (0-0.5); Lymphocytes Absolute Auto 1.29 K/mm3 (0.9-3.2); Mean Corpuscular HGB Conc 32.1 g/dl (32-36); Mean Corpuscular Hemoglobin 27.1 pg (26-34); Mean Corpuscular Volume 84.5 fl (80-100); Nucleated Red Blood Cells Absolute Auto 0.000 K/mm3 (0.0-0.012); Nucleated Red Blood Cells Perc 0.0 % (0.0-0.2); Platelet Count Result 198 k/mm3 (150-375); Red Blood Count 5.24 M/mm3 (4.6-6.20); White Blood Count 5.2 K/mm3 (4.5-10.0)
[2025-03-08 17:21] LABS: Alanine Aminotransferase 58 U/L (6-50); Albumin Level 4.6 g/dL (3.5-5.1); Alkaline Phosphatase 62 U/L (38-126); Anion Gap 11 mmol/L (4-12); Aspartate Amino Transferase 59 U/L (17-59); Bilirubin,Total 0.9 mg/dL (0.2-1.3); Blood Urea Nitrogen 13 mg/dL (9-20); Calcium 9.1 mg/dL (8.4-10.2); Carbon Dioxide 28 mmol/L (22-30); Chloride 96 mmol/L (98-107); Estimated Glomerular Filt Rate > 60; Glucose 124 mg/dL (65-110); Potassium 3.8 mmol/L (3.4-5.0); Sodium 135 mmol/L (137-145); Total Protein 8.2 g/dL (6.3-8.2)
== END 2025-03-08 16:38 | disposition home or self-care (01) ==
LOC: ANHLAB 16:40
PROVIDERS: PCP Family Medicine; Visit Provider Family Medicine
DX: R10.11 Right upper quadrant pain (principal)
CPT/HCPCS: 36415; 80053; 81003; 85025